=== PATIENT | male | born 2000 | race Caucasian/White ===

== ENCOUNTER 2019-03-28 05:22 | Day surgery (SDC) | payer BC, OTHER ==
[~2019-03-28] VITALS: Ht 182.9 cm; Wt 72.6 kg
[2019-03-28 06:45] VITALS: BP 112/71
--- NOTE | 2019-03-28 08:15 | H ---
[facility] [place] [address] HISTORY AND PHYSICAL Name: HARMONY QUISPE Room #: 150-6 [facility] M.R.#: [id number] Admission: 03/28/19 ������������������ Attend Phys: Asa Nance MD Discharge: ������������������ Date of : [birth year] Report #: [id number] THIS REPORT FOR: //name// CC: FAM unknown Asa Nance DATE OF SERVICE: 03/28/2019 His procedure is scheduled for 03/28/2019. HISTORY OF PRESENT ILLNESS: The patient cannot breathe very well through his nose. He has been a mouth breather for as long as they can remember. He has had a lot of problems with his tonsils with strep pharyngitis 2-3 times a year. He does not get very good sleep. He is tired almost every day. PAST MEDICAL HISTORY: Otherwise, not significant. MEDICATIONS: He is on no medications on a regular basis. ALLERGIES: He has no known drug allergies. PHYSICAL EXAMINATION: He has a mildly deviated nasal septum anteriorly to the left and along the floor on the right. He had some congestion. He has enlarged tonsils with some purulent drainage along the posterior pharyngeal wall and nasal endoscopy shows an enlarged adenoid with granular swelling of the nasopharynx and hypopharynx. IMPRESSION: Tonsil and adenoid hypertrophy with symptoms of chronic sinusitis and chronic pharyngitis. PLAN: Tonsillectomy and adenoidectomy. ��������������������������������������������� <ELECTRONICALLY SIGNED> ���������������������������������������� By: Asa Nance MD ��������������������������������������������� 05/814 1438 1455 Asa Nance MD /aramis
[2019-03-28 08:48] VITALS: BP 112/71
--- NOTE | 2019-03-29 18:05 | PATH ---
[place] [address] PATHOLOGY RPT PROCEDURE Name: BRITTANEYWYATT YSABEL Room #: DEP [facility] M.R.#: [id number] ������������������ Admission: 03/28/19 ������������������ Date of : [birth year] Discharge: 03/28/19 Report #: [id number] Path Case #: [id number] [facility] Accession Number: [id number] . 01 Material submitted: . PART A: tonsil - RIGHT TONSIL AND ADENOID. Modifiers: right PART B: tonsil - LEFT TONSIL. Modifiers: left . 01 Clinical history: . Chronic tonsillitis, adenoid hypertrophy . 02 Diagnosis: A. Right tonsil and adenoid, tonsillectomy and adenoidectomy: - Acutely inflamed epithelium overlying lymphoid tissue with reactive hyperplasia. . B. Tonsil, left tonsil, tonsillectomy: - Acutely inflamed epithelium overlying lymphoid tissue with reactive hyperplasia. . (IUV:jada; 03/29/2019) MBCasa/03/29/2019 . 02 Electronically signed: . Sabi Mar MD, Pathologist NPI- [id number] . 01 Gross description: . A. The specimen is received in formalin, labeled "Wyatt Raymundo, right tonsil and adenoid", is a butcher-pink, rubbery tonsils measuring 3.2 x 1.7 x 1.5 cm and two irregular fragment of butcher-pink soft tissue measuring 1.2 x 1.0 x 0.5 cm in aggregate. Serial sectioning of the reveals butcher-pink crypts. Steak T[employer] Machine tissue of the tonsil and entire adenoids submitted in A1. (Tonsil = inked black) . B. The specimen is received in formalin, labeled "Wyatt Raymundo, left tonsil", is a butcher-pink, rubbery tonsils measuring 3.0 x 1.8 x 1.5 cm. Serial sectioning of the reveals butcher-pink crypts. Steak [employer] tissue is submitted in B1. (SWS; 03/28/2019) [facility] . 02 Pathologist provided ICD-10: J03.90, J35.1 . 02 CPT . 908300, [id number] [place] [address] PATHOLOGY RPT PROCEDURE Name: WYATT RAYMUNDO YSABEL Room #: DEP [facility] M.R.#: [id number] ������������������ Admission: 03/28/19 ������������������ Date of : [birth year] Discharge: 03/28/19 Report #: [id number] Path Case #: [id number] Specimen Comment: A courtesy copy of this report has been sent to Specimen Comment: [phone], . Specimen Comment: Report sent to / DR ARAMBULA Performed at: [address], [place] [id number] MD Vel Henry MD Phone: [phone] Performed at: [address] [id number] MD Sabi Mar MD Phone: [phone]
--- NOTE | 2019-03-30 08:05 | O ---
[facility] [place] [address] OPERATIVE REPORT Name: HARMONY QUISPE Room #: DEP [facility]..#: [id number] Admission: 03/28/19 ������������������ Attend Phys: Asa Nance MD Discharge: 03/28/19 ������������������ Date of : [birth year] Report #: [id number] THIS REPORT FOR: //name// CC: Isabella Nance DATE OF SERVICE: 03/28/2019 PREOPERATIVE DIAGNOSIS: Chronic tonsillitis with tonsil and adenoid hypertrophy. POSTOPERATIVE DIAGNOSIS: Chronic tonsillitis with tonsil and adenoid hypertrophy. OPERATIVE PROCEDURE: Tonsillectomy and adenoidectomy. ANESTHESIA: It was a general endotracheal. DESCRIPTION OF PROCEDURE: The patient was taken to the operating room and placed in a supine position. General anesthesia was induced by endotracheal intubation. Once adequate general anesthesia was obtained, the patient was draped in a sterile manner. A Ginger-Ronaldo mouth gag was placed in the patient's mouth and the tongue was deviated upward. A throat pack was placed. Red rubber catheters were placed through the nose and nasopharynx and out the oropharynx and oral cavity to elevate the soft palate and the nasopharynx was visualized indirectly using a mirror. The adenoid was hypertrophied and adenoidectomy was performed by placing the adenoid curette at the base of the vomer and sweeping downward. The adenoid was removed and sent to pathology. Nasopharyngeal packing was placed. The right tonsil was grasped and deviated towards midline. An incision was placed in the anterior tonsillar pillar using the Bovie electrocautery and a plane between tonsillar capsule and tonsillar fossa was established. Dissection was carried out in this plane using the Bovie and hemostasis was achieved during the dissection. Dissection was carried out from superior to inferior. The inferior pole was incised and posterior tonsillar mucosa was incised. The tonsil was removed and sent to pathology. Left tonsil was removed in exactly the same manner. The area was then irrigated with normal saline. Hemostasis was verified in the tonsillar beds. The nasopharyngeal packing was removed. The nasopharynx was irrigated and there was adequate hemostasis in the nasopharynx as well. The throat pack, mouth gag and red rubber catheters were all removed. The patient tolerated the procedure well. Blood loss was approximately 20 mL. The patient was then awoken and taken to the recovery room in stable condition for postoperative monitoring. ��������������������������������������������� <ELECTRONICALLY SIGNED> ���������������������������������������� By: Asa Nance MD ��������������������������������������������� 03/30/19 0805 [id number] [id number] Asa Nance MD /nt
== END 2019-03-28 10:36 | disposition home or self-care (01) ==
LOC: OR → TBA 05:22 → OR 05:22
DX: J03.90 Acute tonsillitis, unspecified (principal); J35.01 Chronic tonsillitis; J35.3 Hypertrophy of tonsils with hypertrophy of adenoids; Z98.890 Other specified postprocedural states
CPT/HCPCS: 50010; 50101; 62110; 62900; 70005